=== PATIENT | male | born 1940 | race Two or more races ===

== ENCOUNTER 2025-02-23 12:14 | Inpatient (IN) | payer OTHER, MEDICAID ==
[~2025-02-23] VITALS: Ht 157.5 cm; Wt 77.5 kg
--- NOTE | 2025-02-23 12:40 | ED.PDOC ---
History of Present Illness HPI Comments 85 year old male brought in by son presents to the ED with a chief complaint of headache onset 3 months. Son states patient has been experiencing headache for the past 3 months, pain has worsen. Son also noticed patient has been experiencing generalized weakness, poor appetite for the past week. Currently, p boyd is experiencing lightheadedness/dizziness. Denies chest pain,shortness of breath, nausea, vomiting, diarrhea, hematmesis,blood in stool, melena, blurred vision, dysuria, hematuria, fever, chills. No other symptoms or modifying factors present at this time. Chief Complaint: Headache Time Seen by MD: 12:30 Reviewed Notes: Medications, Allergies Allergies: Coded Allergies: NO KNOWN ALLERGIES (Unverified , 02/23/25) Information Source: Patient, Relative (Child) Mode of Arrival: Wheelchair Severity: Moderate Timing: Months Duration: Since onset Prehospital treatment: None Past Medical History PAST MEDICAL HISTORY: Denies Surgical History: Denies all surgeries Family History Family History: Reviewed,noncontributory to illness, No family hx of Cancer, No family hx of DM, No family hx of Heart ifeoma, No family hx of HTN, No family hx ofKidney ifeoma, No family hx of Liver ifeoma, No family hx of Lung ifeoma, No family hx of Stroke Social History Smoker: Non-Smoker Alcohol: Denies ETOH Use Drugs: Denies Drug Use Lives In: Home Constitutional: reports: weakness; denies: chills, diaphoresis, fatigue, fever, malaise, sweats, others EENTM: denies: blurred vision, double vision, ear bleeding, ear discharge, ear drainage, ear pain, ear ringing, eye pain, eye redness, hearing loss, mouth pain, mouth swelling, nasal discharge, nose bleeding, nose congestion, nose pain, photophobia, tearing, throat pain, throat swelling, voice changes, others Respiratory: denies: cough, hemoptysis, orthopnea, SOB at rest, shortness of breath, SOB with excertion, stridor, wheezing, others Cardiovascular: denies: chest pain, dizzy spells, diaphoresis, Dyspnea on exertion, edema, irregular heart beat, left arm pain, lightheadedness, palpitations, PND, syncope, others Gastrointestinal: reports: poor appetite; denies: abdomen distended, abdominal pain, blood streaked bowels, constipated, diarrhea, dysphagia, difficulty swallowing, hematemesis, melena, nausea, poor fluid intake, rectal bleeding, rectal pain, vomiting, others Genitourinary: denies: burning, dysuria, flank pain, frequency, hematuria, incontinence, penile discharge, penile sore, pain, testicle pain, testicle swelling, urgency, others Neurological: reports: dizziness, headache, weakness; denies: fainting, left sided numbness, left sided weakness, numbness, paresthesia, pre-existing deficit, right sided numbness, right sided weakness, seizure, speech problems, tingling, tremors, others Musculoskeletal: denies: back pain, gout, joint pain, joint swelling, muscle pain, muscle stiffness, neck pain, others Integumetry: denies: bruises, change in color, change in hair/nails, dryness, laceration, lesions, lumps, rash, wounds, others Allergic/Immunocompromised: denies: Difficulty Healing, Frequent Infections, Hives, Itching, others Hematologic/Lymphatic: denies: anemia, blood clots, easy bleeding, easy bruising, swollen glands, others Endocrine: denies: excessive hunger, excessive sweating, excessive thirst, excessive urination, flushing, intolerance to cold, intolerance to heat, unexpla ined weight gain, unexplained weight loss, others Psychiatric: denies: anxiety, bipolar disorder, depression, hopeless, panic disorder, schizophrenia, sleepless, suicidal, others All Other Systems: Reviewed and Negative Physical Exam General Appearance: Normal HEENT: Normal ENT Inspection, Pharynx Normal, TMs Normal Neck: Full Range of Motion, Non-Tender, Normal, Normal Inspection Respiratory: Chest Non-Tender, Lungs Clear, No Accessory Muscle Use, No Respiratory Distress, Normal Breath Sounds Cardiovascular: No Edema, No JVD, No Murmur, No Gallop, Normal Peripheral Pulses, Regular Rate/Rhythm Breast Exam: Deferred Gastrointestinal: No Organomegaly, Non Tender, No Pulsatile Mass, Normal Bowel Sounds, Soft Genitalia: Deferred Pelvic: Deferred Rectal: Deferred Extremities: No calf tenderness, Normal capillary refill, Normal inspection, Normal range of motion, Non-tender, No pedal edema Musculoskeletal : Apperance: Normal 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, retort pre cooker II-XII nml as Tested, No Motor Deficits, Normal Affect, Normal Mood, No Sensory Deficits Cerebellar Function: Normal Reflexes: Normal Skin: Dry, Normal Color, Warm Lymphatic: No Adenopathy Was a procedure done? Was a procedure done?: No Differential Dx Considerations may include: ACS, CVA, viral syndrome, electrolyte abnormality, infectious etiology, cardiac arrhythmia X-Ray, Labs, Meds, VS Vital Signs Date Time Temp Pulse Resp B/P (MAP) Pulse Ox O2 Delivery O2 Flow Rate FiO2 02/23/25 14:50 64 02/23/25 13:02 Room Air* 0 21 02/23/25 12:59 98.2 76 16 108/47 (67) 98 98.2 02/23/25 12:25 70 02/23/25 12:16 98.1 98 18 128/73 72 98.1 Lab Test 02/23/25 14:00 02/23/25 12:49 Range/Units Troponin I High Sensitivity 5 6 </=54 ng/L White Blood Count 11.9 H 4.4-10.8 10^3/uL Red Blood Count 4.50 4.5-5.90 10^6/uL Hemoglobin 14.1 13.5-17.5 g/dL Hematocrit 41.0 41.0-53.0 % Mean Corpuscular Volume 91.0 80.0-100.0 fL Mean Corpuscular Hemoglobin 31.3 28.0-32.0 pg Mean Corpuscular Hemoglobin Concent 34.4 32.0-36.0 g/dL Red Cell Distribution Width 13.7 11.8-14.3 % Platelet Count 152 140-450 10^3/uL Mean Platelet Volume 8.7 6.9-10.8 fL Neutrophils (%) (Auto) 85.2 H 37.0-80.0 % Lymphocytes (%) (Auto) 6.3 L 10.0-50.0 % Monocytes (%) (Auto) 8.0 0.0-12.0 % Eosinophils (%) (Auto) 0.2 0.0-7.0 % Basophils (%) (Auto) 0.3 0.0-2.0 % Neutrophils # (Auto) 10.2 H 1.6-8.6 10 ^3/uL Lymphocytes # (Auto) 0.7 0.4-5.4 10 ^3/uL Monocytes # (Auto) 1.0 0-1.3 10 ^3/uL Eosinophils # (Auto) 0 0-0.8 10 ^3/uL Basophils # (Auto) 0 0-0.2 10 ^3/uL Nucleated Red Blood Cells 0.1 % Sodium Level 131 L 136-145 mmol/L Potassium Level 3.7 3.5-5.1 mmol/L Chloride Level 95 L 98-107 mmol/L Carbon Dioxide Level 24 20-31 mmol/L Anion Gap 12 5-15 Blood Urea Nitrogen 24 H 9-23 mg/dL Creatinine 1.31 H 0.700-1.30 mg/dL Glomerular Filtration Rate Calc 54 >90 mL/min BUN/Creatinine Ratio 18.3 10.0-20.0 Serum Glucose 170 H 74-106 mg/dL Calcium Level 8.1 L 8.7-10.4 mg/dL Time of 1ST Reevaluation: 13:00 Reevaluation 1ST: Unchanged Patient Education/Counseling: Diagnosis, Treatment, Prognosis Family Education/Counseling: Diagnosis, Treatment, Prognosis SEPSIS Sepsis Screen Date sepsis recognized/suspect: Feb 23, 2025 Time Sepsis recognized/suspect: 1218 Recent Procedure: No On Antibiotic Therapy: No Respiratory Rate >20: No Heart Rate >90: No Temp<36 C (96.8 F) or >38.3 C: No SBP <90 or MAP <65 mmHG: No New Acute Mental Status Change: No Is the patient on CPAP, BIPAP,: No Physician Orders Electrocardigram (02/23/25 12:30) Urinalysis (02/23/25 12:34) Chest Portable (02/23/25 12:34) Head Without Contrast (02/23/25 12:34) Electrocardigram (02/23/25 12:34) Troponin-I Hs (02/23/25 15:34) Electrocardigram (02/23/25 13:34) Electrocardigram (02/23/25 15:34) Vital Signs Date Time Temp Pulse Resp B/P (MAP) Pulse Ox O2 Delivery O2 Flow Rate FiO2 02/23/25 14:50 64 02/23/25 13:02 Room Air* 0 21 02/23/25 12:59 98.2 76 16 108/47 (67) 98 98.2 02/23/25 12:25 70 02/23/25 12:16 98.1 98 18 128/73 72 98.1 Laboratory Tests Test 02/23/25 12:49 White Blood Count 11.9 10^3/uL (4.4-10.8) H Departure 1 Departure Time of Disposition: 15:07 (Patient now with worsening generalized weakness. Patient's workup so far is on reviewing you have an obvious cause. We will admit patient for further workup) Impression: Primary Impression: Near syncope Additional Impression: Generalized weakness Disposition: ADMITTED INPATIENT Admit to: Med Surg Condition: Guarded Critical Care Note Critical Care Time?: No Stability Stability form required: No Heart Score Heart Score: Heart Score Response (Comments) Value History N/A 0 EKG N/A 0 Age N/A 0 Risk Factors N/A 0 Troponin N/A 0 Total 0 I personally scribed for DIANN AMAYA MD ([email or web address]) on 02/23/25 at 12:40. Electronically submitted by Geneva Aquino ([email or web address]). DIANN AMAYA MD Feb 23, 2025 12:40
--- NOTE | 2025-02-23 13:10 | DVH ---
EXAM: CT HEAD WITHOUT CONTRAST HISTORY: near syncope, altered level of consciousness COMPARISON: None TECHNIQUE: Noncontrast axial CT images of the head were performed. Sagittal and coronal reformatted images were obtained. This CT exam was performed using 1 or more of the following dose reduction techniques: Automated exposure control, adjustment of the mA and/or kv according to patient size, or the use of iterative reconstruction techniques. Radiation Dose: CTDI volume is 53.63 mGy. Dose-length product is 1076.06 mGy*cm FINDINGS: No intracranial hemorrhage, mass, midline shift, hydrocephalus, or evidence of acute large vessel infarct. There is mild decreased attenuation in the periventricular white matter. The partially-visualized paranasal sinuses are clear. There are postoperative changes of bilateral cataract extraction surgery. The bilateral mastoid air cells and middle ear spaces are clear. There is pneumatization of the petrous apices. There are mucous retention cysts in the left maxillary and ethmoid sinuses. There are multiple dental caries. No cranial fracture. There is mild right frontal supraorbital scalp edema IMPRESSION: 1. No acute intracranial process. 2. Mild left frontal scalp edema without underlying cranial fracture. 3. Left maxillary and ethmoid sinus disease. 4. Multiple dental caries. Recommend outpatient dental consultation.
[2025-02-23 13:13] LABS: Hematocrit 41.0 % (41.0-53.0); Hemoglobin 14.1 g/dL (13.5-17.5); Mean Corpuscular Hemoglobin 31.3 pg (28.0-32.0); Mean Corpuscular Volume 91.0 fL (80.0-100.0); Nucleated Red Blood Cells % 0.1 %
--- NOTE | 2025-02-23 13:13 | DVH ---
EXAM: XY CHEST PORTABLE Indication: near syncope Technique: Single frontal view of the chest was obtained Comparison: CT HEAD WITHOUT CONTRAST on DOS: 02/23/25 FINDINGS: Lines and Tubes: None Lungs: No focal consolidation. Pleura: No effusion. No pneumothorax. Cardiomediastinal contours: Unremarkable. Atherosclerotic vascular calcifications of the thoracic aorta are noted. Bones: No acute osseous abnormality. IMPRESSION: No acute cardiopulmonary disease.
[2025-02-23 13:19] LABS: Potassium 3.7 mmol/L (3.5-5.1)
[2025-02-23 13:20] LABS: Anion Gap 12 (5-15); Carbon Dioxide 24 mmol/L (20-31)
[2025-02-23 13:22] LABS: Calcium 8.1 mg/dL (8.7-10.4); Chloride 95 mmol/L (98-107); Sodium 131 mmol/L (136-145)
[2025-02-23 13:25] LABS: BUN/Creatinine Ratio 18.3 (10.0-20.0)
[2025-02-23 13:27] LABS: Blood Urea Nitrogen 24 mg/dL (9-23); Glucose 170 mg/dL (74-106)
--- NOTE | 2025-02-23 13:36 | ECG ---
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
[2025-02-23] MEDS: ACETAMINOPHEN 325 MG TAB PO ONE (14:30)
[2025-02-23 15:50] VITALS: PULSE 66; RESP 14; O2SAT 99
[2025-02-23 16:07] LABS: Urine Budding Yeast OCCASIONAL /hpf (None Seen); Urine Protein, UAD 1+ (Negative); Urine WBC Clumps PRESENT /hpf (None Seen)
--- NOTE | 2025-02-23 16:59 | ECG ---
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
[2025-02-23] MEDS ORDERED: MORPHINE SULFATE INJ 2 MG/ml SYRG IV PRN (17:00)
[2025-02-23] MEDS ORDERED: ONDANSETRON HCL 4 MG/2 ML VIAL IV PRN (17:00)
[2025-02-23] MEDS ORDERED: NITROGLYCERIN 0.4 MG SL TAB SL PRN (17:00)
--- NOTE | 2025-02-23 17:02 | DVHHP2 ---
History of Present Illness Reason for Visit: Dizziness, headache and generalized weakness History of Present Illness 85 year old male brought in by son presents to the ED with a chief complaint of headache onset 3 months. Son states patient has been experiencing headache for the past 3 months, pain has worsen. Son also noticed patient has been experiencing generalized weakness, poor appetite for the past week. Currently, patient is experiencing lightheadedness/dizziness. Denies chest pain,shortness of breath, nausea, vomiting, diarrhea, hematmesis,blood in stool, melena, blurr ed vision, dysuria, hematuria, fever, chills. No other symptoms or modifying factors present at this time. In the ER he is evaluated and noted to have a significant urinary tract infection with hypokalemia and mild renal insufficiency. [place] this was causing his weakness and possible dizziness. Therefore he is being brought into the hospital for further evaluation and management. Review of Systems Review of Systems Denies any chest pain shortness for breath. No syncopal episodes. No fevers chills or sweats. Complains of headache.Other review of systems reviewed normal. Allergies: Coded Allergies: NO KNOWN ALLERGIES (Unverified , 02/23/25) Medications Current Medications Medications Dose Ordered Sig/Tristan Route Start Time Stop Time Status Last Admin Dose Admin Ceftriaxone Sodium 50 ml @ 100 mls/hr DAILY@09 IV 02/24/25 09:00 Nitroglycerin 0.4 mg Q5MINP PRN SL 02/23/25 17:00 Morphine Sulfate 2 mg Q30M PRN IV 02/23/25 17:00 Sodium Chloride 1,000 ml @ 75 mls/hr [id number] IV 02/23/25 17:00 UNV Ondansetron HCl 4 mg Q4HPRN PRN IV 02/23/25 17:00 UNV Acetaminophen 650 mg Q4HP PRN PO 02/23/25 17:00 UNV Exam Vital Signs Vital Signs Date Time Temp Pulse Resp B/P (MAP) Pulse Ox O2 Delivery O2 Flow Rate FiO2 02/23/25 16:17 99.1 64 15 118/38 (64) 98 99.1 02/23/25 15:50 Room Air* 0 21 Exam Is comfortable. Alert awake oriented to place and person. HEENT neck supple no JVD pupils equal round react to light. Heart regular rate and rhythm S1-S2 without any murmurs. Lungs fair air movement chest tube will expansion no rales wheezes. Abdomen soft nontender nondistended positive bowel sounds. Extremities no edema positive pulses. Neurologically no focal deficits. Labs/Xrays Labs Test 02/23/25 16:16 02/23/25 15:41 02/23/25 12:49 Range/Units Troponin I High Sensitivity 5 </=54 ng/L Urine Color Yellow Yellow Urine Clarity Turbid H Clear Urine pH 5.5 5.0-9.0 Urine Specific Reserve 1.013 1.001-1.035 Urine Protein 1+ H Negative Urine Ketones Negative Negative Urine Blood 1+ H Negative /uL Urine Nitrite Negative Negative Urine Bilirubin Negative Negative Urine Urobilinogen 3 H Negative mg/dL Urine Leukocyte Esterase 3+ Negative /uL Urine RBC 5 0 - 3 /hpf Urine WBC Clumps Present None Seen /hpf Urine Microscopic WBC 283 H 0-3 /HPF Urine Squamous Epithelial Cells Few <5 /hpf Urine Bacteria Few H None Seen /hpf Urine Mucus Few None Seen Urine Yeast (Budding) Occasional None Seen /hpf Urine Glucose Normal Normal mg/dL White Blood Count 11.9 H 4.4-10.8 10^3/uL Red Blood Count 4.50 4.5-5.90 10^6/uL Hemoglobin 14.1 13.5-17.5 g/dL Hematocrit 41.0 41.0-53.0 % Mean Corpuscular Volume 91.0 80.0-100.0 fL Mean Corpuscular Hemoglobin 31.3 28.0-32.0 pg Mean Corpuscular Hemoglobin Concent 34.4 32.0-36.0 g/dL Red Cell Distribution Width 13.7 11.8-14.3 % Platelet Count 152 140-450 10^3/uL Mean Platelet Volume 8.7 6.9-10.8 fL Neutrophils (%) (Auto) 85.2 H 37.0-80.0 % Lymphocytes (%) (Auto) 6.3 L 10.0-50.0 % Monocytes (%) (Auto) 8.0 0.0-12.0 % Eosinophils (%) (Auto) 0.2 0.0-7.0 % Basophils (%) (Auto) 0.3 0.0-2.0 % Neutrophils # (Auto) 10.2 H 1.6-8.6 10 ^3/uL Lymphocytes # (Auto) 0.7 0.4-5.4 10 ^3/uL Monocytes # (Auto) 1.0 0-1.3 10 ^3/uL Eosinophils # (Auto) 0 0-0.8 10 ^3/uL Basophils # (Auto) 0 0-0.2 10 ^3/uL Nucleated Red Blood Cells 0.1 % Sodium Level 131 L 136-145 mmol/L Potassium Level 3.7 3.5-5.1 mmol/L Chloride Level 95 L 98-107 mmol/L Carbon Dioxide Level 24 20-31 mmol/L Anion Gap 12 5-15 Blood Urea Nitrogen 24 H 9-23 mg/dL Creatinine 1.31 H 0.700-1.30 mg/dL Glomerular Filtration Rate Calc 54 >90 mL/min BUN/Creatinine Ratio 18.3 10.0-20.0 Serum Glucose 170 H 74-106 mg/dL Calcium Level 8.1 L 8.7-10.4 mg/dL SEPSIS Sepsis Screen Date sepsis recognized/suspect: Feb 23, 2025 Time Sepsis recognized/suspect: 1549 Recent Procedure: No On Antibiotic Therapy: No Respiratory Rate >20: No Heart Rate >90: No Temp<36 C (96.8 F) or >38.3 C: No SBP <90 or MAP <65 mmHG: No New Acute Mental Status Change: No Is the patient on CPAP, BIPAP,: No Physician Orders Electrocardigram (02/23/25 12:30) Chest Portable (02/23/25 12:34) Head Without Contrast (02/23/25 12:34) Electrocardigram (02/23/25 13:34) Electrocardigram (02/23/25 15:34) Ceftriaxone 1gm/50ml (Rocephin) (02/24/25 09:00) Ceftriaxone 1gm/50ml (Rocephin) (02/23/25 17:00) Admit (02/23/25 16:54) Nitroglycerin Sublingual (Ntrostat Subli (02/23/25 17:00) Morphine Sulfate Injection (02/23/25 17:00) Stat Ekg For Chest Pain (02/23/25 16:54) Notify Of Changes From Base (02/23/25 16:54) Customer Associate For 24 Hours (02/23/25 16:54) Emergency Dysrhythmia Protocol (02/23/25 16:54) Rhythm Strips Once Every Shift (02/23/25 16:54) Oxygen By Nasal Cannula (02/23/25 16:54) Urine Bacterial Culture (02/23/25 16:55) Pt Request For Service (02/23/25 16:55) * Interpreter Consult (02/23/25 ) * Cardiology Consult (02/23/25 16:55) Cardiac Diet-2gna,Lofat,Lochol (02/23/25 Dinner) Echo 2d Mode Cardiac Dop (02/23/25 16:55) Orthostatic Vital Signs (02/23/25 16:55) Orthostatic Vital Signs (02/23/25 ) Basic Metabolic Panel (02/24/25 04:00) Complete Blood Count (02/24/25 04:00) Sodium Chloride 0.9% (02/23/25 17:00) Ondansetron Hcl (Zofran) (02/23/25 17:00) Acetaminophen Tablet (Tylenol Tablet) (02/23/25 17:00) Fluticasone Nasal [place] (Flonase [place]) (02/23/25 22:00) Vital Signs Date Time Temp Pulse Resp B/P (MAP) Pulse Ox O2 Delivery O2 Flow Rate FiO2 02/23/25 16:17 99.1 64 15 118/38 (64) 98 99.1 02/23/25 16:01 55 02/23/25 15:50 66 14 99 Room Air* 0 21 02/23/25 15:50 99.1 72 14 102/63 (76) 97 99.1 02/23/25 14:50 64 02/23/25 13:02 Room Air* 0 21 02/23/25 12:59 98.2 76 16 108/47 (67) 98 98.2 02/23/25 12:25 70 02/23/25 12:16 98.1 98 18 128/73 72 98.1 Laboratory Tests Test 02/23/25 12:49 White Blood Count 11.9 10^3/uL (4.4-10.8) H Medications Medications Dose Ordered Sig/Tristan Route Start Time Stop Time Status Last Admin Dose Admin Acetaminophen 650 mg ONCE ONCE PO 02/23/25 14:30 02/23/25 15:06 DC 02/23/25 14:30 650 MG Assessment/Plan Assessment/Plan We will admit him to telemetry floor. We will have cardiac evaluation for his weakness dizziness symptoms. 2D echocardiogram. For his headache we will use Tylenol and patient does noted to have sinusitis could explain his symptoms therefore we will put him on nasal spray. For urinary tract infection we will start him on IV antibiotics as well as IV fluids for weakness. Physical therapy evaluation. Otherwise follow the labs. Continue rest of supportive care and treatment. Otherwise his follow clinical management per clinical course and recommendations from the Cardiology. Discussed with the patient regarding care plan. Plan discussed with: Patient, Other My Orders Orders - PATRICIA SOARES MD Procedure Category Date Status Time Ceftriaxone 1gm/50ml PHA 02/24/25 In Process (Rocephin) 09:00 Ceftriaxone 1gm/50ml PHA 02/23/25 In Process (Rocephin) 17:00 Admit ADMIT 02/23/25 Transmitted 16:54 Nitroglycerin PHA 02/23/25 In Process Sublingual (Ntrostat 17:00 Morphine Sulfate PHA 02/23/25 In Process Injection 17:00 Stat Ekg For Chest HUANG 02/23/25 In Process Pain 16:54 Notify Of Changes HUANG 02/23/25 In Process From Base 16:54 Customer Associate For HUANG 02/23/25 In Process 24 Hours 16:54 Emergency Dysrhythmia HUANG 02/23/25 In Process Protocol 16:54 Rhythm Strips Once [facility] 02/23/25 In Process Every Shift 16:54 Oxygen By Nasal RT 02/23/25 Transmitted Cannula 16:54 Urine Bacterial LAURO 02/23/25 Logged Culture 16:55 Pt Request For Service PT 02/23/25 Logged 16:55 * Interpreter CONS 02/23/25 Transmitted Consult * Cardiology Consult CONS 02/23/25 Transmitted 16:55 Cardiac DIET 02/23/25 Transmitted Diet-2gna,Lofat,Lochol Dinner Echo 2d Mode Cardiac US 02/23/25 Logged DOP 16:55 Orthostatic Vital ORDERS 02/23/25 Transmitted Signs 16:55 Orthostatic Vital ED NURSING 02/23/25 Transmitted Signs Basic Metabolic Panel LAB 02/24/25 Verified 04:00 Complete Blood Count LAB 02/24/25 Verified 04:00 Sodium Chloride 0.9% PHA 02/23/25 Logged 17:00 Ondansetron Hcl PHA 02/23/25 Logged (Zofran) 17:00 Acetaminophen Tablet PHA 02/23/25 Logged (Tylenol Tablet) 17:00 Fluticasone Nasal PHA 02/23/25 Verified [place] (Flonase [place]) 22:00 Problem List: (1) Generalized weakness (2) Near syncope (3) Acute UTI (urinary tract infection) (4) Headache PATRICIA SOARES MD Feb 23, 2025 17:02
[2025-02-23 18:01] VITALS: BP 125/80; PULSE 55; RESP 16; TEMP 99.1; O2SAT 99
[2025-02-23] MEDS: SODIUM CHLORIDE 0.9% 1,000 ML IV SCH (20:18)
[2025-02-23 20:30] VITALS: PULSE 55; RESP 12; O2SAT 98
[2025-02-23 21:00] VITALS: BP 114/41; PULSE 55; RESP 12; TEMP 97.1; O2SAT 98
[2025-02-23] MEDS: FLUTICASONE PROP NASAL SPR 0.05 % (50MCG) 16GM EACHNOSTRI SCH (21:35)
[2025-02-24] VITALS (9 sets, daily range): BP systolic 97–124; BP diastolic 43–84; PULSE 50–70; RESP 14–18; TEMP 97.7–98.8; O2SAT 96–100
[2025-02-24 06:06] LABS: Hematocrit 36.4 % (41.0-53.0); Hemoglobin 12.8 g/dL (13.5-17.5); Mean Corpuscular Hemoglobin 31.9 pg (28.0-32.0); Mean Corpuscular Volume 90.6 fL (80.0-100.0); Nucleated Red Blood Cells % 0.0 %
[2025-02-24 06:18] LABS: Anion Gap 10 (5-15); Carbon Dioxide 26 mmol/L (20-31)
[2025-02-24 06:23] LABS: BUN/Creatinine Ratio 19.1 (10.0-20.0); Blood Urea Nitrogen 22 mg/dL (9-23)
[2025-02-24 06:25] LABS: Calcium 8.0 mg/dL (8.7-10.4); Chloride 96 mmol/L (98-107); Glucose 178 mg/dL (74-106); Potassium 3.5 mmol/L (3.5-5.1); Sodium 132 mmol/L (136-145)
--- NOTE | 2025-02-24 07:54 | ECG ---
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
[2025-02-24] MEDS: ACETAMINOPHEN 325 MG TAB PO PRN (11:26)
--- NOTE | 2025-02-24 11:39 | DVHINCON2 ---
Date of service: Feb 24, 2025 History of Present Illness 85 year old male brought in by son presents to the ED with a chief complaint of headache onset 3 months. Son states patient has been experiencing headache for the past 3 months, pain has worsen. Son also noticed patient has been experiencing generalized weakness, poor appetite for the past week. Currently, patient is experiencing lightheadedness/dizziness. Denies chest pain,shortness of breath, nausea, vomiting, diarrhea, hematmesis,blood in stool, melena, blurred vision, dysuria, hematuria, fever, chills. No other symptoms or modif jesus factors present at this time. In the ER he is evaluated and noted to have a significant urinary tract infection with hypokalemia and mild renal insufficiency. [place] this was causing his weakness and possible dizziness. However given patient has a scalp edema with a questionable fall with these complaints he has been admitted to the hospital for cardiac evaluation. Past Medical History reviewed Family History: Cardiovascular disease Diabetes mellitus Hypertension Allergies: Coded Allergies: NO KNOWN ALLERGIES (Unverified , 02/23/25) Current Medications Current Medications Medications (Trade) Dose Ordered Sig/Tristan Route PRN Reason Start Time Stop Time Status Last Admin Ceftriaxone Sodium 50 ml @ 100 mls/hr DAILY@09 IV 02/24/25 09:00 02/24/25 09:00 Nitroglycerin (Ntrostat Sublingual) 0.4 mg Q5MINP PRN SL FOR CHEST PAIN 02/23/25 17:00 Morphine Sulfate 2 mg Q30M PRN IV FOR CHEST PAIN 02/23/25 17:00 Sodium Chloride 1,000 ml @ 75 mls/hr [id number] IV 02/23/25 17:00 02/23/25 20:18 Ondansetron HCl (Zofran) 4 mg Q4HPRN PRN IV NAUSEA / VOMITING 02/23/25 17:00 Acetaminophen (Tylenol Tablet) 650 mg Q4HP PRN PO MILD PAIN (1-3 PAIN SCALE) 02/23/25 17:00 02/24/25 11:26 Fluticasone Propionate (Flonase [place]) 50 mcg Q12HR EACHNOSTRI 02/23/25 22:00 Review of Systems 10 pt ros otherwise negative Vital Signs Vital Signs Date Time Temp Pulse Resp B/P (MAP) Pulse Ox O2 Delivery O2 Flow Rate FiO2 02/24/25 09:00 98.8 61 18 106/58 (74) 96 98.8 02/23/25 20:30 Room Air* 0 21 Physical Exam nad s1 s2 irregular ctab soft nt/nd no edema Labs/Diagnostic Data Labs Test 02/24/25 05:11 02/23/25 16:16 02/23/25 15:41 Range/Units White Blood Count 12.2 H 4.4-10.8 10^3/uL Red Blood Count 4.02 L 4.5-5.90 10^6/uL Hemoglobin 12.8 L 13.5-17.5 g/dL Hematocrit 36.4 #L 41.0-53.0 % Mean Corpuscular Volume 90.6 80.0-100.0 fL Mean Corpuscular Hemoglobin 31.9 28.0-32.0 pg Mean Corpuscular Hemoglobin Concent 35.2 32.0-36.0 g/dL Red Cell Distribution Width 13.8 11.8-14.3 % Platelet Count 146 140-450 10^3/uL Mean Platelet Volume 8.7 6.9-10.8 fL Neutrophils (%) (Auto) 85.7 H 37.0-80.0 % Lymphocytes (%) (Auto) 7.0 L 10.0-50.0 % Monocytes (%) (Auto) 6.9 0.0-12.0 % Eosinophils (%) (Auto) 0.3 0.0-7.0 % Basophils (%) (Auto) 0.1 0.0-2.0 % Neutrophils # (Auto) 10.5 H 1.6-8.6 10 ^3/uL Lymphocytes # (Auto) 0.8 0.4-5.4 10 ^3/uL Monocytes # (Auto) 0.8 0-1.3 10 ^3/uL Eosinophils # (Auto) 0 0-0.8 10 ^3/uL Basophils # (Auto) 0 0-0.2 10 ^3/uL Nucleated Red Blood Cells 0.0 % Sodium Level 132 L 136-145 mmol/L Potassium Level 3.5 3.5-5.1 mmol/L Chloride Level 96 L 98-107 mmol/L Carbon Dioxide Level 26 20-31 mmol/L Anion Gap 10 5-15 Blood Urea Nitrogen 22 9-23 mg/dL Creatinine 1.15 0.700-1.30 mg/dL Glomerular Filtration Rate Calc 63 >90 mL/min BUN/Creatinine Ratio 19.1 10.0-20.0 Serum Glucose 178 H 74-106 mg/dL Calcium Level 8.0 L 8.7-10.4 mg/dL Troponin I High Sensitivity 5 </=54 ng/L Urine Color Yellow Yellow Urine Clarity Turbid H Clear Urine pH 5.5 5.0-9.0 Urine Specific [place] 1.013 1.001-1.035 Urine Protein 1+ H Negative Urine Ketones Negative Negative Urine Blood 1+ H Negative /uL Urine Nitrite Negative Negative Urine Bilirubin Negative Negative Urine Urobilinogen 3 H Negative mg/dL Urine Leukocyte Esterase 3+ Negative /uL Urine RBC 5 0 - 3 /hpf Urine WBC Clumps Present None Seen /hpf Urine Microscopic WBC 283 H 0-3 /HPF Urine Squamous Epithelial Cells Few <5 /hpf Urine Bacteria Few H None Seen /hpf Urine Mucus Few None Seen Urine Yeast (Budding) Occasional None Seen /hpf Urine Glucose Normal Normal mg/dL Microbiology Date/Time Source Procedure Growth Status 02/23/25 15:41 Voided Urine Urine Culture - Preliminary Resulted Assessment afib rbbb lafb htn headache Plan/Recommendation start doac eliquis 2.5 mg po bid rate controlled, avoid aggressive avn agents given his conduction disease check echo Plan discussed with: Patient EUGENIO BROWER MD Feb 24, 2025 11:39
[2025-02-24] MEDS: SODIUM CHLORIDE 0.9% 1,000 ML IV SCH (13:45)
--- NOTE | 2025-02-24 19:45 | DVHINCON2 ---
Date of service: Feb 24, [address] Anthony Reason for Consultation Transfer of care due to insurance. History of Present Illness Oren Waddell is a 85 year old male who presented with complaint of headache onset 3 months. Patient was brought in by son. Patient endorses dizziness, headache along with generalized weakness. Patient's son reports headaches have recently worsened. Son also noted patient with increased generalized weakness and poor appetite for the last week. Patient currently complains of lightheadedness/dizziness. Denies chest pain,shortness of breath, nausea, vomiting, diarrhea, hematmesis,blood in stool, melena, blurred vision, dysuria, hematuria, fever, chills. While in ED, he was evaluated and found to have a urinary tract infection with hypokalemia and mild renal insufficiency. Patient also has a scalp edema with a questionable fall. CT head reported no acute intracranial process; mild left frontal scalp edema without underlying cranial fracture; left maxillary and ethmoid sinus disease; multiple dental caries. Chest x-ray reported no acute cardiopulmonary disease. EKG showed atrial fibrillation; RBBB and LAFB; probable lateral infarct, old. Allergies: Coded Allergies: NO KNOWN ALLERGIES (Unverified , 02/23/25) Current Medications Current Medications Medications (Trade) Dose Ordered Sig/Tristan Route PRN Reason Start Time Stop Time Status Last Admin Ceftriaxone Sodium 50 ml @ 100 mls/hr DAILY@09 IV 02/24/25 09:00 02/24/25 09:00 Fluticasone Propionate (Flonase [place]) 50 mcg Q12HR EACHNOSTRI 02/23/25 22:00 Apixaban (Eliquis) 2.5 mg BID PO 02/24/25 22:00 Sodium Chloride 1,000 ml @ 50 mls/hr Q20H IV 02/24/25 13:45 02/25/25 09:44 02/24/25 13:45 Family History: Cardiovascular disease Diabetes mellitus Hypertension Review of Systems Constitutional: reports: weakness; denies: chills, diaphoresis, fatigue, fever, malaise, sweats, others Respiratory: denies: cough, hemoptysis, orthopnea, SOB at rest, shortness of breath, SOB with excertion, stridor, wheezing, others Cardiovascular: denies: chest pain, dizzy spells, diaphoresis, Dyspnea on exertion, edema, irregular heart beat, left arm pain, lightheadedness, palpitations, PND, syncope, others Gastrointestinal: reports: poor appetite; denies: abdomen distended, abdominal pain, blood streaked bowels, constipated, diarrhea, dysphagia, difficulty swallowing, hematemesis, melena, nausea, poor fluid intake, rectal bleeding, rectal pain, vomiting, others Neurological: reports: dizziness, headache, weakness; denies: fainting, left sided numbness, left sided weakness, numbness, paresthesia, pre-existing deficit, right sided numbness, right sided weakness, seizure, speech problems, tingling, tremors, others All Other Systems: Reviewed and Negative H&P Exam Vital Signs/I&O Vital Sign Date Time Temp Pulse Resp B/P (MAP) Pulse Ox O2 Delivery O2 Flow Rate FiO2 02/24/25 17:00 98.0 59 17 97/68 (78) 98 98.0 02/24/25 08:00 Room Air* 0 21 Intake and Output 02/23/25 02/24/25 19:00 07:00 Intake Total 1425 ml Output Total 101 ml Balance 1324 ml Intake Oral 600 ml IV Total 825 ml Output Urine Total 100 ml Stool Total 1 ml Physical Exam Vitals and nursing notes reviewed. General Appearance: Normal HEENT: Normal ENT Inspection, Pharynx Normal Neck: Full Range of Motion, Non-Tender, Normal, Normal Inspection Respiratory: Chest Non-Tender, Lungs Clear, No Accessory Muscle Use, No Respiratory Distress, Normal Breath Sounds Cardiovascular: No Edema, No JVD, No Murmur, No Gallop, Normal Peripheral Pulses, Regular Rate/Rhythm Gastrointestinal: No Organomegaly, Non Tender, No Pulsatile Mass, Normal Bowel Sounds, Soft Extremities: No calf tenderness, Normal capillary refill, Normal inspection, Normal range of motion, Non-tender, No pedal edema Musculoskeletal : No extremity deformity. 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, No Motor Deficits, Normal Affect, Normal Mood, No Sensory Deficits Skin: Dry, Normal Color, Warm Labs/Diagnostic Data Labs/Diagnostic Data Laboratory Tests Test 02/24/25 05:11 02/23/25 16:16 02/23/25 15:41 02/23/25 14:00 Range/Units White Blood Count 12.2 H 4.4-10.8 10^3/uL Red Blood Count 4.02 L 4.5-5.90 10^6/uL Hemoglobin 12.8 L 13.5-17.5 g/dL Hematocrit 36.4 #L 41.0-53.0 % Mean Corpuscular Volume 90.6 80.0-100.0 fL Mean Corpuscular Hemoglobin 31.9 28.0-32.0 pg Mean Corpuscular Hemoglobin Concent 35.2 32.0-36.0 g/dL Red Cell Distribution Width 13.8 11.8-14.3 % Platelet Count 146 140-450 10^3/uL Mean Platelet Volume 8.7 6.9-10.8 fL Neutrophils (%) (Auto) 85.7 H 37.0-80.0 % Lymphocytes (%) (Auto) 7.0 L 10.0-50.0 % Monocytes (%) (Auto) 6.9 0.0-12.0 % Eosinophils (%) (Auto) 0.3 0.0-7.0 % Basophils (%) (Auto) 0.1 0.0-2.0 % Neutrophils # (Auto) 10.5 H 1.6-8.6 10 ^3/uL Lymphocytes # (Auto) 0.8 0.4-5.4 10 ^3/uL Monocytes # (Auto) 0.8 0-1.3 10 ^3/uL Eosinophils # (Auto) 0 0-0.8 10 ^3/uL Basophils # (Auto) 0 0-0.2 10 ^3/uL Nucleated Red Blood Cells 0.0 % Sodium Level 132 L 136-145 mmol/L Potassium Level 3.5 3.5-5.1 mmol/L Chloride Level 96 L 98-107 mmol/L Carbon Dioxide Level 26 20-31 mmol/L Anion Gap 10 5-15 Blood Urea Nitrogen 22 9-23 mg/dL Creatinine 1.15 0.700-1.30 mg/dL Glomerular Filtration Rate Calc 63 >90 mL/min BUN/Creatinine Ratio 19.1 10.0-20.0 Serum Glucose 178 H 74-106 mg/dL Calcium Level 8.0 L 8.7-10.4 mg/dL Troponin I High Sensitivity 5 5 </=54 ng/L Urine Color Yellow Yellow Urine Clarity Turbid H Clear Urine pH 5.5 5.0-9.0 Urine Specific [place] 1.013 1.001-1.035 Urine Protein 1+ H Negative Urine Ketones Negative Negative Urine Blood 1+ H Negative /uL Urine Nitrite Negative Negative Urine Bilirubin Negative Negative Urine Urobilinogen 3 H Negative mg/dL Urine Leukocyte Esterase 3+ Negative /uL Urine RBC 5 0 - 3 /hpf Urine WBC Clumps Present None Seen /hpf Urine Microscopic WBC 283 H 0-3 /HPF Urine Squamous Epithelial Cells Few <5 /hpf Urine Bacteria Few H None Seen /hpf Urine Mucus Few None Seen Urine Yeast (Budding) Occasional None Seen /hpf Urine Glucose Normal Normal mg/dL Test 02/23/25 12:49 Range/Units White Blood Count 11.9 H 4.4-10.8 10^3/uL Red Blood Count 4.50 4.5-5.90 10^6/uL Hemoglobin 14.1 13.5-17.5 g/dL Hematocrit 41.0 41.0-53.0 % Mean Corpuscular Volume 91.0 80.0-100.0 fL Mean Corpuscular Hemoglobin 31.3 28.0-32.0 pg Mean Corpuscular Hemoglobin Concent 34.4 32.0-36.0 g/dL Red Cell Distribution Width 13.7 11.8-14.3 % Platelet Count 152 140-450 10^3/uL Mean Platelet Volume 8.7 6.9-10.8 fL Neutrophils (%) (Auto) 85.2 H 37.0-80.0 % Lymphocytes (%) (Auto) 6.3 L 10.0-50.0 % Monocytes (%) (Auto) 8.0 0.0-12.0 % Eosinophils (%) (Auto) 0.2 0.0-7.0 % Basophils (%) (Auto) 0.3 0.0-2.0 % Neutrophils # (Auto) 10.2 H 1.6-8.6 10 ^3/uL Lymphocytes # (Auto) 0.7 0.4-5.4 10 ^3/uL Monocytes # (Auto) 1.0 0-1.3 10 ^3/uL Eosinophils # (Auto) 0 0-0.8 10 ^3/uL Basophils # (Auto) 0 0-0.2 10 ^3/uL Nucleated Red Blood Cells 0.1 % Sodium Level 131 L 136-145 mmol/L Potassium Level 3.7 3.5-5.1 mmol/L Chloride Level 95 L 98-107 mmol/L Carbon Dioxide Level 24 20-31 mmol/L Anion Gap 12 5-15 Blood Urea Nitrogen 24 H 9-23 mg/dL Creatinine 1.31 H 0.700-1.30 mg/dL Glomerular Filtration Rate Calc 54 >90 mL/min BUN/Creatinine Ratio 18.3 10.0-20.0 Serum Glucose 170 H 74-106 mg/dL Calcium Level 8.1 L 8.7-10.4 mg/dL Troponin I High Sensitivity 6 </=54 ng/L Assessment Generalized weakness Near syncope Acute UTI (urinary tract infection) Headache A-Fib Plan/Recommendation Continue current supportive medical care. Cardiology consulted. Started on doac. 2D echocardiogram ordered/pending. Flonase. IV antibiotics with Ceftriaxone for UTI. IVFs with NS at 50 mL/hr. PT eval and treat. Pain management prn. DVT prophylaxis: Full Dose Anticoagulation. Additional plan as per the hospital course. Plan discussed with: Patient, Other (RN) NEELAM HERNANDEZ DO Feb 24, 2025 19:44
[2025-02-24] MEDS: APIXABAN 2.5 MG TAB PO SCH (21:34)
[2025-02-25 05:00] VITALS: BP 98/56; PULSE 53; RESP 17; TEMP 97.8; O2SAT 94
[2025-02-25 06:23] LABS: Hematocrit 35.9 % (41.0-53.0); Hemoglobin 12.6 g/dL (13.5-17.5); Mean Corpuscular Hemoglobin 31.9 pg (28.0-32.0); Mean Corpuscular Volume 91.0 fL (80.0-100.0); Nucleated Red Blood Cells % 0.0 %
[2025-02-25 06:33] LABS: Chloride 100 mmol/L (98-107); Sodium 137 mmol/L (136-145)
[2025-02-25 06:34] LABS: Anion Gap 10 (5-15); Carbon Dioxide 27 mmol/L (20-31)
[2025-02-25 06:40] LABS: BUN/Creatinine Ratio 18.8 (10.0-20.0); Blood Urea Nitrogen 18 mg/dL (9-23)
[2025-02-25 06:51] LABS: Calcium 8.2 mg/dL (8.7-10.4); Glucose 144 mg/dL (74-106); Potassium 3.3 mmol/L (3.5-5.1)
[2025-02-25 08:00] VITALS: PULSE 48; PULSE 59; RESP 18; O2SAT 95
[2025-02-25 13:00] VITALS: BP 110/56; PULSE 59; RESP 17; TEMP 97.6; O2SAT 95
[2025-02-25 17:48] VITALS: BP 119/52; PULSE 53; RESP 16; TEMP 97.4; O2SAT 98
[2025-02-25 20:00] VITALS: PULSE 56
--- NOTE | 2025-02-25 20:11 | DVHPN2 ---
Progress Note - Dictate Date Seen: Feb 25, 2025 Has the PT tested + for MRSA If YES, has PT been informed?: No Medical Necessity Reason Pt with a Central, PICC or Fol: No Subjective Patient was seen and evaluated in follow up. No acute events overnight. Patient is stable on RA. No new complaints. Pending echocardiogram. vital signs Vital Sign Date Time Temp Pulse Resp B/P (MAP) Pulse Ox O2 Delivery O2 Flow Rate FiO2 02/25/25 17:48 97.4 53 16 119/52 (74) 98 97.4 02/25/25 08:00 Room Air* 0 21 Total Intake and Output 02/24/25 02/24/25 02/25/25 15:00 23:00 07:00 Intake Total 150 ml Balance 150 ml medications Current Medications Medications Dose Ordered Sig/Tristan Route Start Time Stop Time Status Last Admin Dose Admin Ceftriaxone Sodium 50 ml @ 100 mls/hr DAILY@09 IV 02/24/25 09:00 02/25/25 11:15 100 MLS/HR Nitroglycerin 0.4 mg Q5MINP PRN SL 02/23/25 17:00 Morphine Sulfate 2 mg Q30M PRN IV 02/23/25 17:00 Ondansetron HCl 4 mg Q4HPRN PRN IV 02/23/25 17:00 Acetaminophen 650 mg Q4HP PRN PO 02/23/25 17:00 02/24/25 21:34 650 MG Fluticasone Propionate 50 mcg Q12HR EACHNOSTRI 02/23/25 22:00 Apixaban 2.5 mg BID PO 02/24/25 22:00 02/25/25 11:14 2.5 MG objective Vitals and nursing notes reviewed. General Appearance: Normal HEENT: Normal ENT Inspection, Pharynx Normal Neck: Full Range of Motion, Non-Tender, Normal, Normal Inspection Respiratory: Chest Non-Tender, Lungs Clear, No Accessory Muscle Use, No Respiratory Distress, Normal Breath Sounds Cardiovascular: No Edema, No JVD, No Murmur, No Gallop, Normal Peripheral Pulses, Regular Rate/Rhythm Gastrointestinal: No Organomegaly, Non Tender, No Pulsatile Mass, Normal Bowel Sounds, Soft Extremities: No calf tenderness, Normal capillary refill, Normal inspection, Normal range of motion, Non-tender, No pedal edema Musculoskeletal : No extremity deformity. 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 Cardiology consulted. 2D echocardiogram ordered/pending. SW consulted for home health PT and FWW. Flonase. IV antibiotics with Ceftriaxone for UTI. IVFs with NS at 50 mL/hr. PT as recommended. Pain management prn. DVT prophylaxis: Full Dose Anticoagulation. Additional plan as per the hospital course. Plan discussed with: Patient, Other (RN) NEELAM HERNANDEZ DO Feb 25, 2025 20:11
[2025-02-25 21:00] VITALS: BP 111/64; PULSE 50; RESP 18; TEMP 97.8; O2SAT 98
[2025-02-26] VITALS (8 sets, daily range): BP systolic 106–128; BP diastolic 48–69; PULSE 46–63; RESP 16–18; TEMP 97–98.7; O2SAT 97–100
[2025-02-26] MEDS ORDERED: DEXTROSE (50%) 50ML SYRG IV PRN (13:00)
[2025-02-26] MEDS: InsuLIN REG 1unit/0.01ml Soln (100units/ml) SC SCH (17:00)
[2025-02-26] MEDS: ACCU-CHEK COMFORT CURVE STRIP VI SCH (17:00)
--- NOTE | 2025-02-26 20:30 | DVHPN2 ---
Progress Note - Dictate Date Seen: Feb 26, 2025 Has the PT tested + for MRSA If YES, has PT been informed?: No Medical Necessity Reason Pt with a Central, PICC or Fol: No Subjective Patient was seen and evaluated in follow up. No acute events overnight. Patient denies any complaints. No SOB. Still pending Echo results. Patient's family has reported patient takes no home medications. BS's are ranging in the 140s-170s. vital signs Vital Sign Date Time Temp Pulse Resp B/P (MAP) Pulse Ox O2 Delivery O2 Flow Rate FiO2 02/26/25 17:02 97.6 53 18 127/65 (85) 100 97.6 02/26/25 08:00 Room Air* 0 21 Total Intake and Output 02/25/25 02/25/25 02/26/25 15:00 23:00 07:00 Intake Total 800 ml 450 ml Output Total 1000 ml Balance -200 ml 450 ml medications Current Medications Medications Dose Ordered Sig/Tristan Route Start Time Stop Time Status Last Admin Dose Admin Ceftriaxone Sodium 50 ml @ 100 mls/hr DAILY@09 IV 02/24/25 09:00 02/26/25 09:14 100 MLS/HR Nitroglycerin 0.4 mg Q5MINP PRN SL 02/23/25 17:00 Morphine Sulfate 2 mg Q30M PRN IV 02/23/25 17:00 Ondansetron HCl 4 mg Q4HPRN PRN IV 02/23/25 17:00 Acetaminophen 650 mg Q4HP PRN PO 02/23/25 17:00 02/24/25 21:34 650 MG Fluticasone Propionate 50 mcg Q12HR EACHNOSTRI 02/23/25 22:00 Apixaban 2.5 mg BID PO 02/24/25 22:00 02/26/25 09:14 2.5 MG Diagnostic Test (Pha) 1 strip ACHS 02/26/25 17:00 02/26/25 17:00 1 STRIP Insulin Human Regular ACHS SC 02/26/25 17:00 Dextrose 50 ml UD PRN IV 02/26/25 13:00 objective Vitals and nursing notes reviewed. General Appearance: Normal HEENT: Normal ENT Inspection, Pharynx Normal Neck: Full Range of Motion, Non-Tender, Normal, Normal Inspection Respiratory: Chest Non-Tender, Lungs Clear, No Accessory Muscle Use, No Respiratory Distress, Normal Breath Sounds Cardiovascular: No Edema, No JVD, No Murmur, No Gallop, Normal Peripheral Pulses, Regular Rate/Rhythm Gastrointestinal: No Organomegaly, Non Tender, No Pulsatile Mass, Normal Bowel Sounds, Soft Extremities: No calf tenderness, Normal capillary refill, Normal inspection, Normal range of motion, Non-tender, No pedal edema Musculoskeletal : No extremity deformity. 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 Cardiology consulted. 2D echocardiogram ordered/ results pending. SW consulted for home health PT and FWW. Check HgbA1C. ISS. Accu-checks. Flonase. IV antibiotics with Ceftriaxone for UTI. PT as recommended. Pain management prn. DVT prophylaxis: Full Dose Anticoagulation. Additional plan as per the hospital course. Plan discussed with: Patient, Other (RN) NEELAM HERNANDEZ DO Feb 26, 2025 20:30
[2025-02-27 01:00] VITALS: BP 108/54; PULSE 59; RESP 19; TEMP 97.9; O2SAT 95
[2025-02-27 05:27] VITALS: BP 125/66; PULSE 59; RESP 17; TEMP 98.6; O2SAT 94
[2025-02-27 08:00] VITALS: PULSE 51
[2025-02-27 10:00] VITALS: BP 127/69; PULSE 58; RESP 18; TEMP 98.6; O2SAT 98
[2025-02-27 13:00] VITALS: BP 122/65; PULSE 60; RESP 18; TEMP 98.5; O2SAT 97
--- NOTE | 2025-02-27 20:03 | DVHDS2 ---
Discharge Summary Date of Admission Feb 23, 2025 at 16:54 Date of Discharge: Feb 27, 2025 Admitting Diagnosis Generalized weakness Near syncope Acute UTI (urinary tract infection) Headache A-Fib Labs/Diagnostic Data: Laboratory Results Test 02/27/25 16:50 02/26/25 11:41 02/25/25 05:21 02/23/25 16:16 POC Glucose 212 mg/dl (70-106) Hemoglobin A1c 6.6 % A1C (<5.7) White Blood Count 9.9 10^3/uL (4.4-10.8) Red Blood Count 3.94 10^6/uL (4.5-5.90) Hemoglobin 12.6 g/dL (13.5-17.5) Hematocrit 35.9 % (41.0-53.0) Mean Corpuscular Volume 91.0 fL (80.0-100.0) Mean Corpuscular Hemoglobin 31.9 pg (28.0-32.0) Mean Corpuscular Hemoglobin Concent 35.0 g/dL (32.0-36.0) Red Cell Distribution Width 13.9 % (11.8-14.3) Platelet Count 172 10^3/uL (140-450) Mean Platelet Volume 8.5 fL (6.9-10.8) Neutrophils (%) (Auto) 81.0 % (37.0-80.0) Lymphocytes (%) (Auto) 10.1 % (10.0-50.0) Monocytes (%) (Auto) 7.2 % (0.0-12.0) Eosinophils (%) (Auto) 1.3 % (0.0-7.0) Basophils (%) (Auto) 0.4 % (0.0-2.0) Neutrophils # (Auto) 8.0 10 ^3/uL (1.6-8.6) Lymphocytes # (Auto) 1.0 10 ^3/uL (0.4-5.4) Monocytes # (Auto) 0.7 10 ^3/uL (0-1.3) Eosinophils # (Auto) 0.1 10 ^3/uL (0-0.8) Basophils # (Auto) 0 10 ^3/uL (0-0.2) Nucleated Red Blood Cells 0.0 % Sodium Level 137 mmol/L (136-145) Potassium Level 3.3 mmol/L (3.5-5.1) Chloride Level 100 mmol/L (98-107) Carbon Dioxide Level 27 mmol/L (20-31) Anion Gap 10 (5-15) Blood Urea Nitrogen 18 mg/dL (9-23) Creatinine 0.96 mg/dL (0.700-1.30) Glomerular Filtration Rate Calc 78 mL/min (>90) BUN/Creatinine Ratio 18.8 (10.0-20.0) Serum Glucose 144 mg/dL (74-106) Calcium Level 8.2 mg/dL (8.7-10.4) Troponin I High Sensitivity 5 ng/L (</=54) Test 02/23/25 15:41 Urine Color Yellow (Yellow) Urine Clarity Turbid (Clear) Urine pH 5.5 (5.0-9.0) Urine Specific [place] 1.013 (1.001-1.035) Urine Protein 1+ (Negative) Urine Ketones Negative (Negative) Urine Blood 1+ /uL (Negative) Urine Nitrite Negative (Negative) Urine Bilirubin Negative (Negative) Urine Urobilinogen 3 mg/dL (Negative) Urine Leukocyte Esterase 3+ /uL (Negative) Urine RBC 5 /hpf (0 - 3) Urine WBC Clumps Present /hpf (None Seen) Urine Microscopic WBC 283 /HPF (0-3) Urine Squamous Epithelial Cells Few /hpf (<5) Urine Bacteria Few /hpf (None Seen) Urine Mucus Few (None Seen) Urine Yeast (Budding) Occasional /hpf (None Urine Glucose Normal mg/dL (Normal) Other Laboratory Tests 02/25/25 05:21 Brief Hx & Hospital Course: Oren Waddell is a 85 year old male who presented with complaint of headache onset 3 months. Please see H&P for further details. While in ED, he was evaluated and found to have a urinary tract infection with hypokalemia and mild renal insufficiency. Patient also has a scalp edema with a questionable fall. CT head reported no acute intracranial process; mild left frontal scalp edema without underlying cranial fracture; left maxillary and ethmoid sinus disease; multiple dental caries. Chest x-ray reported no acute cardiopulmonary disease. EKG showed atrial fibrillation; RBBB and LAFB; probable lateral infarct, old. Patient was subsequently admitted for further evaluation. Patient continued supportive treatment. UTI was treated with Ceftriaxone. Cardiology was also consulted for A-Fib. Blood sugars were trending high in the 140s-170s, patient received insulin sliding scale. Denied prior history of diabetes. HgbA1C was found elevated at 6.6. Patient was awaiting further evaluation and treatment, including ordered Echocardiogram, however decided to leave AMA with son today. Patient and son were made aware of risks with leaving AMA per nursing staff. Patient is discharged AMA. Vitals and nursing notes reviewed. Physial exam prior to discharge not performed as patient left AMA. Consults/Reason for consult EUGENIO BROWER MD - Cardiology, consult for A-FIb. Condition at Discharge: Undetermined Final Diagnosis/Problems List Generalized weakness Near syncope Acute UTI (urinary tract infection) Headache A-Fib Discharge Disposition: AMA Discharge Statement: "Patient was advised to return to the ER or call 911 if any headaches, dizziness, shortness of breath, chest pain, abdominal pain, bleeding, fevers, or worsening of medical condition. Patient was counseled about treatment plan, medications, possible side effects, patientverbalized understanding. All questions were answered to the best of my ability. This discharge took greater then 30 minutes in planning, reviewing documentation, counseling the patient, and discussing with other team members." ASSESSMENT ASSESSMENT Assessment NEELAM HERNANDEZ DO Feb 27, 2025 20:03
--- NOTE | 2025-03-01 11:07 | DVHSR ---
APPROVED REPORT EXAM: Two-dimensional and M-mode echocardiogram with Doppler and color Doppler. Blood Pressure: 102/43 mmHg INDICATION Dizziness and Vertigo RISK FACTORS Height: 5'2", Weight: 162 DIMENSIONS LVDd 4.3 (3.8-5.7cm) LA (2D) 4.0 (1.9-4.0cm) Aortic Root (2.0-3.7cm) LVDs 2.8 (2.5-4.0cm) LA (MM) (1.9-4.0cm) Aortic Cusp Exc (1.5-2.0cm) EF (%) 63.0 (55-70%) Rt. Atrium 4.5 (1.9-4.0cm) Asc. Aorta cm IVSd 1.0 (0.7-1.1cm) RV (D) (1.8-2.4cm) Mitral Valve Mitral Mitral Stenosis E wave 0.68m/s MV Mean GR. mmHg A wave 0.85m/s MV Peak GR. mmHg E/A ratio 0.8 2D MVA cm2 DECEL Time 259ms PRESS 1/2 Time ms Aortic Valve Aortic Valve Aortic Stenosis V1 1.12m/s AO Mean GR. 7mmHg V2 1.70m/s AO Peak GR. 12mmHg LVOT Diameter 2.1 (1.8-2.4cm) Doppler GERARDO 2.28cm2 Pulmonic Valve V2 0.85m/s Tricuspid Valve TR Velocity 2.32m/s RVSP 25mmHg Other Information Quality : Technically Limited Rhythm : Technically limited study due to body habitus. Conclusion lvef 55% normal rv function left atrium enlarged no severe valve abnormalities noted normal pericardium
== END 2025-02-27 18:31 | disposition left against medical advice (07) | DRG 690 ==
LOC: ER 12:14 → OVERFLOW 16:54 → TELE-EAST 16:55
PROVIDERS: ADMIT Internal Medicine; ATTEND Internal Medicine
DX: N30.01 Acute cystitis with hematuria (principal); E86.0 Dehydration; E87.6 Hypokalemia; I10 Essential (primary) hypertension; I48.91 Unspecified atrial fibrillation; Z79.01 Long term (current) use of anticoagulants; I45.2 Bifascicular block; R55 Syncope and collapse; R51.9 Headache, unspecified; N28.9 Disorder of kidney and ureter, unspecified; Z53.29 Procedure and treatment not carried out because of patient's decision for other reasons; Z82.49 Family history of ischemic heart disease and other diseases of the circulatory system; Z83.3 Family history of diabetes mellitus
CPT/HCPCS: 36415; 70450; 71045; 80048; 81001; 82962; 83036; 84484; 85025; 87086; 93005; 93306; 97110; 97116; 97163; 97530; G0378; J1815